=== PATIENT | female | born 1960 | race Hispanic/Latino ===

== ENCOUNTER 2019-12-13 13:07 | Observation (INO) | payer OTHER ==
--- NOTE | 2019-12-13 13:44 | RAD ---
PORTABLE CHEST: HISTORY: Chest pain and dizziness. FINDINGS: Lung bunn are clear. No infiltrate or vascular congestion. Heart and mediastinum unremarkable. IMPRESSION: No acute process. POS: [facility]
[2019-12-13 13:48] LABS: #Basophils 0.1 thou/uL (0.0-0.2); #Eosinphils 0.1 thou/uL (0.0-0.7); #Lymphocytes 1.9 thou/uL (1.20-3.40); #Monocytes 0.5 thou/uL (0.11-0.59); #Neutrophils 7.9 thou/uL (1.40-6.50); %Basophils 0.7 % (0.0-1.0); %Eosinophils 0.6 % (0.0-10.0); %Monocytes 4.9 % (0.0-10.0); %Neutrophils 75.9 % (42.0-75.0); Hemoglobin 12.3 g/dL (12.0-16.0); Mean Corpuscular HGB CONC 34.2 g/dL (32.0-36.0); Mean Corpuscular Hemoglobin 29.9 pg (27.0-31.0); Mean Corpuscular Volume 87.3 fL (78.0-98.0); Mean Platelet Volume 8.8 fL (7.4-10.4); Platelet Count 286 thou/uL (130-400); RBC Distribution Width 12.3 % (11.5-14.5); Red Blood Cell (RBC) Count 4.12 mill/uL (4.20-5.40); White Blood Cell (WBC) Count 10.4 thou/uL (4.8-10.8)
[2019-12-13 14:08] LABS: ALT (SGPT) 17 U/L (8-55); AST (SGOT) 15 U/L (5-34); Albumin 4.5 g/dL (3.5-5.0); Alkaline Phosphatase 87 U/L (40-110); Anion Gap 18 mmol/L (10-20); BUN (Urea Nitrogen) 27 mg/dL (9.8-20.1); Bilirubin, Total 0.3 mg/dL (0.2-1.2); Calc. Creatinine Clearance 0 mL/min (70-130); Calcium 10.1 mg/dL (7.8-10.44); Carbon Dioxide 20 mmol/L (22-29); Chloride 108 mmol/L (98-107); Estimated GFR-MDRD 38; Globulin 2.8 g/dL (2.4-3.5); Glucose 89 mg/dL (70-105); Potassium 4.2 mmol/L (3.5-5.1); Protein, Total 7.3 g/dL (6.0-8.3); Sodium 142 mmol/L (136-145)
[2019-12-13 14:53] LABS: Bacteria/HPF None Seen HPF (None Seen); Bilirubin Negative (Negative); Blood, Urine Negative (Negative); Clarity Clear (Clear); Glucose, Urine (Dipstick) Normal (Negative); Leukocyte 75 Leu/uL (Negative); Nitrite Negative (Negative); Protein, Urine (Dipstick) Negative (Neg-Trace); RBC/HPF 0-3 HPF (0-3); Squamous Epithelial 0-3 HPF (0-3); Urobilinogen Normal mg/dL (Less than 2)
[2019-12-13] MEDS ORDERED: Acetaminophen 325 MG TAB PO PRN (16:33)
[2019-12-13] MEDS ORDERED: Nitroglycerin 0.4 MG TAB (25 Tab Bottle) PO PRN (16:33)
[2019-12-13] MEDS ORDERED: HumaLOG 300 UNITS/3 ML VIAL SC PRN (16:34)
[2019-12-13] MEDS ORDERED: Dextrose 5% in Water 1,000 ML IV PRN (16:34)
[2019-12-13] MEDS ORDERED: Dextrose 50% Abboject 50 ML SYRINGE SLOW IVP PRN (16:34)
--- NOTE | 2019-12-13 17:23 | HP ---
CHIEF COMPLAINT: Chest pain. HISTORY OF PRESENT ILLNESS: The patient is a 59-year-old female with past medical history of hypertension, hyperlipidemia, and diabetes, who presents to the hospital with complaints of chest pain x1 day. The patient stated that her chest pain was a burning-like sensation. She also stated that she had some shortness of breath, did not have any radiation to her bilateral upper extremities or her neck area. She also stated that she felt dizzy. She felt like the room was spinning. Denies any ringing in the ears. She felt nauseated, but no emesis. Denies any diaphoresis. She states that she has never . PAST MEDICAL HISTORY: History of diabetes, hypertension, hyperlipidemia. FAMILY HISTORY: Father had at around the age of 63. SOCIAL HISTORY: She denies any alcohol use, drug use, smoking history. PAST SURGICAL HISTORY: She has had a cholecystectomy. She has had a . ALLERGIES: SHE HAS NO KNOWN DRUG ALLERGIES. HOME MEDICATIONS: Are as of the following; 1. She is on metformin. 2. She is on lisinopril. 3. She does not recall her antilipid medication. REVIEW OF SYSTEMS: All negative except for the ones mentioned above in the HPI. PHYSICAL EXAMINATION: VITAL SIGNS: Temperature 98.3, respirations of 18, pulse is 68, blood pressure 117/58, 97% on room air. GENERAL: She is awake, alert, oriented x3. Does not appear in pain or distress. CV: S1 and S2 present. No murmurs, rubs, or gallops. LUNGS: Clear to auscultation. No rhonchi or wheezes noted. ABDOMEN: Soft, obese. Bowel sounds present x2. Pain upon palpation to mid epigastric area. NEUROVASCULAR: There are no focal deficits noted. SKIN: No cuts, lesions, or bruises noted. LABORATORY DATA: Her chest x-ray did not show any acute abnormalities. Her troponin was negative x1. WBCs of 10.4, hemoglobin of 12.3, hematocrit of 35.9, platelets of 286. Chemistry; sodium of 142, potassium of 4.2, BUN of 27, creatinine 1.40. Her urine was leukocyte esterase of 75, wbc's of 7 to 10. Her EKG just showed some T-wave changes. I do not have a prior one for comparison. ASSESSMENT AND PLAN: The patient is a 59-year-old female, who presents to the hospital with complaints of chest pain. 1. Chest pain. We will rule out by doing a stress test. We will trend troponin x3. She is going to be n.p.o. after midnight. Stress test in the morning. We will check a lipid level. Start her on aspirin. We will start her on a statin and continue on a sliding scale insulin for her diabetes. 2. Acute kidney injury. I do not know her baseline creatinine. We will start her on some gentle hydration and see if this improves. 3. Diabetes. Again, I will put her on sliding scale insulin. I will check her hemoglobin A1c and also hold off on her metformin for now. 4. DVT prophylaxis. We will put the patient on subcu Lovenox. Job ID: [id number]
[2019-12-13 18:45] VITALS: BMI 29.5
[2019-12-13] MEDS ORDERED: Atorvastatin Calcium 20 MG TAB PO SCH (21:00)
[2019-12-13] MEDS: Pantoprazole 40 MG VIAL IVP SCH (21:48)
[2019-12-13] MEDS ORDERED: traMADol HCl 50 MG TAB PO PRN (22:27)
[2019-12-13] MEDS ORDERED: Sodium Chloride 0.9% 1,000 ML IV SCH (22:30)
--- NOTE | 2019-12-13 23:26 | ULT ---
ULTRASOUND RETROPERITONEUM COMPLETE: (RENAL) DATE: 12/13/2019 11:07 PM HISTORY: 59-year-old female with bilateral flank pain FINDINGS: The right kidney measures 9 x 4.5 x 4 cm. The left kidney measures 10 x 5 x 3.5 cm. Both kidneys have decreased parenchymal thickness. Several punctate hyperechoic foci are visualized in the medullary portion of the right renal midpole. It is uncertain whether these represent tiny calculi or portions of blood vessels. There is no hydronephrosis. No moderate sized or large renal cystic or solid renal lesion is identified. Cursory images of the urinary bladder demonstrate no gross abnormality. Left ureteral jet is visualized, but the right is not. IMPRESSION: 1. No hydronephrosis. 2. Renal parenchymal thinning.
[2019-12-14 03:16] LABS: #Basophils 0.1 thou/uL (0.0-0.2); #Eosinphils 0.1 thou/uL (0.0-0.7); #Lymphocytes 3.8 thou/uL (1.20-3.40); #Monocytes 0.5 thou/uL (0.11-0.59); %Eosinophils 0.8 % (0.0-10.0); %Lymphocytes 35.9 % (21.0-51.0); %Monocytes 5.1 % (0.0-10.0); %Neutrophils 57.2 % (42.0-75.0); Hemoglobin 11.8 g/dL (12.0-16.0); Mean Corpuscular HGB CONC 34.3 g/dL (32.0-36.0); Mean Corpuscular Hemoglobin 30.1 pg (27.0-31.0); Mean Corpuscular Volume 87.8 fL (78.0-98.0); Mean Platelet Volume 8.3 fL (7.4-10.4); Platelet Count 260 thou/uL (130-400); RBC Distribution Width 12.5 % (11.5-14.5); Red Blood Cell (RBC) Count 3.91 mill/uL (4.20-5.40); White Blood Cell (WBC) Count 10.5 thou/uL (4.8-10.8)
[2019-12-14 03:41] LABS: Troponin I 0.018 ng/mL (< 0.028)
[2019-12-14 05:39] LABS: Chloride 106 mmol/L (98-107); Potassium 4.1 mmol/L (3.5-5.1); Sodium 139 mmol/L (136-145)
[2019-12-14 05:40] LABS: Glucose 101 mg/dL (70-105)
[2019-12-14 05:41] LABS: Carbon Dioxide 22 mmol/L (22-29)
[2019-12-14 05:42] LABS: Anion Gap 15 mmol/L (10-20)
[2019-12-14 05:43] LABS: Calc. Creatinine Clearance 53 mL/min (70-130); Estimated GFR-MDRD 37
[2019-12-14 05:44] LABS: BUN (Urea Nitrogen) 30 mg/dL (9.8-20.1)
[2019-12-14 05:56] LABS: Triglycerides 77 mg/dL (Less than 150)
[2019-12-14 06:01] LABS: Cardiac Risk 2.9 (Less than 4.5); Cholesterol 117 mg/dl (< 200 Desired); HDL Cholesterol 41 mg/dL (>60 Neg Risk); LDL Cholesterol, Calculated 61 mg/dL
[2019-12-14 07:03] LABS: Troponin I 0.013 ng/mL (< 0.028)
[2019-12-14] MEDS ORDERED: Aspirin 325 mg Enteric Coated Tablet PO SCH (09:00)
[2019-12-14] MEDS ORDERED: Enoxaparin Sodium 40 MG/0.4 ML SYRINGE SC SCH (09:00)
[2019-12-14] MEDS ORDERED: Regadenoson 0.4 MG/5 ML SYRINGE ONE (09:53)
[2019-12-14] MEDS: Pantoprazole 40 MG VIAL IVP SCH (11:14)
--- NOTE | 2019-12-14 13:43 | NM ---
Radionucleotide stress only myocardial perfusion scan with CT attenuation correction and SPECT imagin g Left ventricular wall motion evaluation and ejection fraction HISTORY: Chest pain. FINDINGS: Lexiscan protocol. There is homogeneous uptake of radiotracer throughout the left ventricul ar myocardium on the stress images. No focal perfusion defect evident. QGS analysis of gated SPECT images shows no focal wall motion abnormalities. Ejection fraction calcul ated at 80%. IMPRESSION : Normal myocardial perfusion scan. No evidence of ischemia. Normal LVEF.
[2019-12-14 15:18] VITALS: BP 117/66; TEMP 98.6
--- NOTE | 2019-12-14 18:55 | DIS ---
DATE OF ADMISSION: 12/13/2019 DATE OF DISCHARGE: 12/14/2019 DISCHARGE DIAGNOSES: As of the following; 1. Chest pain, atypical, resolved. 2. Presyncope. 3. Diabetes. 4. Acute kidney injury. HOSPITAL COURSE: The patient is a 59-year-old female, who initially presented to the hospital with a burning chest pain. Her troponins x3 were negative. EKG, no acute changes; however, she did have some T-wave inversions at this time. She underwent a nuclear stress test, which was negative. Her EF on the stress test was 80%. She also had an echocardiogram, which indicated an EF of 55% to 60% with mild concentric left ventricular hypertrophy and left atrium was mildly dilated. The patient was also put on a PPI, which was converted to Pepcid twice a day. She stated she felt well. She will be discharged home. She will follow up with her primary as needed. Also while in the hospital, she was noted to have an elevated creatinine. At this time, renal Dopplers were ordered and her renal ultrasound indicated no hydro and renal parenchymal thinning. She did have several punctated hyperechoic foci visible of portion of the right renal midpole. At this time, her lisinopril was discontinued. She was asked to follow up with a [facility] as an outpatient. HOME MEDICATIONS: 1. Aspirin 81 mg daily. 2. Atorvastatin 20 mg daily. 3. Pepcid 20 mg twice a day. 4. Metformin. She will not be taking her lisinopril now due to her kidneys and if her creatinine improve, she can go back on it. I do not have a previous creatinine for comparison. PHYSICAL EXAMINATION: VITAL SIGNS: Temperature of 98.6, pulse 62, respiratory rate 20, 97% on room air, and blood pressure 117/66. GENERAL: She is awake, alert, and oriented x3, does not appear in distress. CV: S1 and S2 present. No murmurs, rubs, or gallops. She will be discharged home, follow up with her primary. Job ID: [id number]
== END 2019-12-14 18:35 ==
LOC: ERS 13:07 → 2SE 15:51
PROVIDERS: ADMIT Internal Medicine; ATTEND Internal Medicine
DX: R07.89 Other chest pain (principal); R55 Syncope and collapse; I10 Essential (primary) hypertension; E11.9 Type 2 diabetes mellitus without complications; N17.9 Acute kidney failure, unspecified; E78.5 Hyperlipidemia, unspecified; Z79.82 Long term (current) use of aspirin; Z79.84 Long term (current) use of oral hypoglycemic drugs; Z79.899 Other long term (current) drug therapy; Z91.018 Allergy to other foods
CPT/HCPCS: 36415; 36416; 71045; 76770; 78452; 80048; 80053; 80061; 81003; 81015; 83036; 83690; 84484; 85025; 93005; 93017; 93306; 94760; 96361; 96374; 96376; A9500; C9113; G0378; J1650; J2785